=== PATIENT | female | born 1950 | race Two or more races ===

== ENCOUNTER → 2019-04-01 | Day surgery (SDC) | payer OTHER | END | disposition home or self-care (01) | LOC: ADM 03-30 13:00 → AMB-ENDOS 08:37 → CIR.AMB 08:37 → ADM 13:00 | DX: D12.0 Benign neoplasm of cecum (principal); K57.30 Diverticulosis of large intestine without perforation or abscess without bleeding; K64.1 Second degree hemorrhoids ==